=== PATIENT | female | born 1990 | race Caucasian/White ===

== ENCOUNTER 2021-12-06 01:22 | Day surgery (SDC) | payer BC, SELFPAY ==
[2021-11-27 13:19] VITALS: BMI 33.3
--- NOTE | 2021-11-27 13:43 | PC.NURSE ---
Report to the Outpatient Waiting Room, entrance under the green pavilion located off [facility], at time __0600 on date _12/06/21 . OR Time: __729 . - You and your visitor will be asked a series of questions to screen for COVID 19 for your protection. - A mask is required within the hospital. Preoperative COVID Testing Requirements: No COVID Test needed Patients may have clear liquids (water, carbonated beverages, clear teas, apple juice) until 3 hours prior to surgery with a maximum of 20 ounces. - No food from midnight until time of surgery - Infants may have breast milk until 4 hours before surgery, infant formula 6 hours prior to surgery. - Children will be allowed to drink immediately following surgery. If applicable, please bring a bottle or sippy cup to assist with drinking. Juice, water, soda, and popsicles are readily available. For infants on formula, please bring formula the day of surgery. Pacifiers are allowed. Take the following medications with a SIP of water the morning of surgery: ___NONE Medications to discontinue per physician NONE Date to take last dose Please no make-up, nail macedonian, hairspray, perfume, deodorant, or body powder the day of surgery. No jewelry (including any body piercings) or valuables the day of surgery, leave them at home. Please take a shower or bath the night before, or the morning of, surgery with an antibacterial soap. Wear comfortable, loose fitting clothing. Children are encouraged to wear pajamas. - Jewelry must be removed prior to entering the operating room. Rings and piercings that are not removed may be cut off. - The hospital will not accept responsibility for valuables. - Please leave all valuables, including medications, at home the day of surgery. If you are going home after surgery, a licensed [employer] driver must drive you home. - NO public transportation without another adult. - We recommend that an adult stay with you for 24 hours following discharge. - We also recommend that you do not drive, make important decision, drink alcoholic beverages, or take any drugs that were not prescribed by your health care provider for at least 24 hours after your discharge time. For Pediatric surgeries, we recommend two adults accompany the child home (only one inside the building at this time). One visitor will be allowed to accompany the patient into the hospital. Patients visitor will be instructed to remain with patient at all times or leave the building. We will allow the visitor to come back to the postoperative area when patient is ready. Follow any additional instructions given to you from your surgeon. Telephone instructions given to _JANES and asked if any additional questions and then verbalized understanding. Patient advised to call surgeon office or pre surgery nurse liaison [phone] if any additional questions.
--- NOTE | 2021-12-05 10:05 | PM.IMHP ---
H&P: HPI History of Present Illness Date/Time: 12/05/21 10:05 31-year-old 023 female presents with complaints of heavy vaginal bleeding cramping clotting cycles lasting 5-7 days with heavy bleeding for 2-3 days when she does not have Nexplanon in place. She currently has a Nexplanon but has and needs to be removed. Therefore will be proceeding with hysteroscopy D and C and ablation. She has had an ultrasound which showed normal findings. Also desires sterilization via bilateral salpingectomy. We have discussed the permanence failure rate increased risk of ectopic regret she clearly states understanding and consents to the procedure. Chief Complaint: menometrorrhagia Review of Systems Review of Systems: All systems reviewed & are unremarkable except as noted in HPI and below PMFSH Past Medical History Medical History Anxiety Surgical History Surgical History History of x2 Family History Family History Mother Ovarian cancer Social History Social History Smoking status: Never smoker Second hand tobacco smoke exposure: No Alcohol intake: never Substance use: never Substance use type: does not use Gender identity (if verbalized by the patient): Female Spiritual care concerns: No Meds Home Medications and Allergies Home Medications Medication Instructions Recorded Confirmed Type acyclovir 400 mg PO BID 07/08/19 11/27/21 History lisdexamfetamine [Vyvanse] 30 mg PO DAILY 11/27/21 11/27/21 History Allergies Allergy/AdvReac Type Severity Reaction Status Date / Time adhesive tape Allergy Severe Hives Verified 11/27/21 13:35 bee venom protein (honey bee) Allergy Swelling Verified 11/27/21 13:35 benzoyl peroxide Allergy Swelling Verified 11/27/21 13:35 Exam Const: General: cooperative, healthy appearing and comfortable Resp: Effort & Inspection: normal respiratory effort Auscultation: clear to auscultation bilaterally Cardio: Rate: regular rate Rhythm: regular rhythm GI: Auscultation: normal bowel sounds : External Female Exam: normal external appearance Speculum Exam - Cervix: normal appearance of the cervix Bimanual exam- vagina & uterus: normal bimanual exam Bimanual Exam- Adnexa, other: normal adnexae Assessment and Plan Assessment and plan (1) Menometrorrhagia: Code(s): N92.1 - Excessive and frequent menstruation with irregular cycle Status: Acute Assessment and Plan: hysteroscopy D&C endometrial ablation (2) Encounter for female sterilization procedure: Code(s): Z30.2 - Encounter for sterilization Status: Acute Additional Plan bilateral salpingectomy
[2021-12-06] VITALS (8 sets, daily range): BP systolic 141–156; BP diastolic 69–93; PULSE 58–84; RESP 15–20; TEMP 36.1–36.6; O2SAT 99–100
[2021-12-06] MEDS: ACETAMINOPHEN 500 MG TABLET 1000 MG PO (06:19)
[2021-12-06] MEDS: LACTATED RINGERS 1,000 ML 30 ML IV CONT (06:40)
[2021-12-06] MEDS: KETOROLAC 15 MG/ML VIAL (*BKC) IV PUSH (06:42)
--- NOTE | 2021-12-06 06:51 | WPDHPUPDATE1 ---
History and Physical Update Update Date/Time: 12/06/21 06:51 History and Physical has been reviewed, including an updated exam of the patient. There are NO changes in the patient's condition. Risks, benefits, and alternatives have been discussed and questions answered. Patient agrees to proceed with procedure.
--- NOTE | 2021-12-06 06:54 | WPDANESEPPF ---
Anes - Initial Pre Proc Eval Procedure: Operation Date: 12/06/21 07:30 Proposed Procedures p Bilateral Laparoscopic Salpingectomy, Hysteroscopy Dilatation and Curettage with Elvira Endometrial Ablation - Martir Vela MD Date/Time: 12/06/21 06:54 Surgeon: Martir Vela MD Pre Op Diagnosis: menometrorrhagia, desires sterilzation Patient Data Age: 31 Gender: F Height: 1.65 m Weight: 99 kg Last Vital Signs Temp 36.6 C 12/06/21 06:10 Pulse 83 12/06/21 06:10 Resp 20 12/06/21 06:10 BP 141/90 H 12/06/21 06:10 Pulse Ox 99 12/06/21 06:10 Allergies Allergy/AdvReac Type Severity Reaction Status Date / Time adhesive tape Allergy Severe Hives Verified 11/27/21 13:35 bee venom protein (honey bee) Allergy Severe Swelling Verified 12/06/21 06:12 benzoyl peroxide Allergy Severe Facial Verified 12/06/21 06:12 Swelling Home Medications Medication Instructions Recorded Confirmed Type acyclovir 400 mg PO BID 07/08/19 12/06/21 History lisdexamfetamine [Vyvanse] 30 mg PO DAILY 11/27/21 12/06/21 History Patient hx anesthesia problems: none Family hx anesthesia problems: none Results Review: All pre-operative results and documents have been reviewed as part of the pre-operative evaluation. [facility] Past Medical History Medical History Anxiety Surgical History Surgical History History of x2 Family History Family History Mother Ovarian cancer Social History Social History Smoking status: Never smoker Second hand tobacco smoke exposure: No Alcohol intake: never Substance use: never Substance use type: does not use Living arrangements: with family Gender identity (if verbalized by the patient): Female Spiritual care concerns: No Anes - Eval Final PreProcedure Day of Procedure 12/06/21 06:54 Patient weight: obese Heart: regular rate and rhythm Lungs: clear to auscultation Airway: Mallampati scale class II Neurological: alert and oriented Last oral intake: >/= 8 hours ASA classification: II Emergent: no Anesthetic plan: proceed Anesthesia type and monitoring: general ETT and standard monitoring Results Review: All pre-operative results and documents have been reviewed as part of the pre-operative evaluation. Informed Consent: The patient's anesthetic plan and its attendant risks and benefits were discussed with the patient/family/POA. Questions were solicited and answers provided to the satisfaction of the patient/family/POA.
[2021-12-06] MEDS: ceFAZolin 2 GM/D5W 50 ML 2 GM/50 ML BAG IVPB (07:24)
--- NOTE | 2021-12-06 08:12 | P.OPB_ITS ---
Procedure Note - Brief Procedure Note - Brief Date of procedure: 12/06/21 Pre-op diagnosis: menometrorrhagia, desires sterilzation Post-op diagnosis: Same Procedure performed: 1. Bilateral salpingectomy 2. Hysteroscopy with uterine curettings 3. Endometrial ablation Description of procedure: Patient prepped draped usual manner for this procedure. Cervical instruments were placed throughout the case. Her until f orm lower quadrant incisions were made and trocars were placed under direct visualization. Using the Harmonic scalp on the mesial salpinx both tubes removed without difficulty. There was no bleeding during this portion of the procedure. Gas was allowed to escape again and the incisions were approximated using 4-0 Monocryl. Cervix was dilated to allow the hysteroscope to be placed which revealed thickened tissue but no specific abnormalities. Endometrial ablation instrument was placed cavity assessment performed and instrument activated. At the end of the procedure destruction was noted throughout the cavity with good results. At this point the procedure was considered terminated patient sent to the recovery room in stable condition. Anesthesia: GETA Surgeon: Martir Vela MD Estimated blood loss (mL): 5 Drains: No Packing: No Pathology: Yes Complications: No immediate complications Condition: Stable Disposition: PACU Findings: Laparoscopic portion procedure revealed adhesions from the bladder flap to the anterior abdominal wall. Ovaries and uterus themselves without abnormality. On hysteroscopic exam thickened tissue was noted though no other specific abnormalities noted.
[2021-12-06] MEDS: fentaNYL CITRATE INJ (*CRX) 100 MCG/2 ML VIAL 25 MCG IV PUSH (08:37)
[2021-12-06] MEDS: oxyCODONE HCL (*CRX) 5 MG TAB IR PO (09:24)
== END 2021-12-06 10:13 | disposition home or self-care (01) ==
PROVIDERS: PCP Physician Assistant; Visit Provider Obstetrics & Gynecology
PROC: 0UDB8ZZ Extraction of Endometrium, Via Natural or Artificial Opening Endoscopic (ICD-10-PCS; CPT 58558; principal; 2021-12-06 07:30)
DX: N92.1 Excessive and frequent menstruation with irregular cycle (principal); Z30.2 Encounter for sterilization; E66.9 Obesity, unspecified; Z68.36 Body mass index [BMI] 36.0-36.9, adult
CPT/HCPCS: 58563; 58661; 88302; 88305; A9270; J0690; J1100; J1885; J2250; J2270; J2274; J2405; J2704; J3010; J7030; J7120

== ENCOUNTER 2022-08-08 21:47 | Emergency (ER) | payer BC, SELFPAY ==
[2022-08-08 21:50] VITALS: BP 168/128; PULSE 95; RESP 20; TEMP 36.1; O2SAT 98
[2022-08-08 21:55] VITALS: BP 168/98
[2022-08-08 22:09] VITALS: BP 176/110; RESP 18
[2022-08-08] MEDS: OXYMETAZOLINE HCL 0.05% NAS 15 ML BTL (*BKC) 1 SPRAY NASAL (23:23)
--- NOTE | 2022-08-08 23:24 | ED.EPISTAXIS ---
HPI - Epistaxis General Chief complaint: Epistaxis Stated complaint: nosebleed Time Seen by Provider: 08/08/22 22:04 History of Present Illness HPI Narrative: 31-year-old female history of ADHD presents to the emergency room for evaluation of nosebleed to her left nare. Patient is a very late yesterday, and has been cleaning it frequently with normal saline and moving around. Patient also remarks that she has been under significant amount of personal stress, stating that she is in the middle of getting a divorce and just moved into a new residence. States that she noticed that her blood pressure was elevated today, with no history of hypertension. Epistaxis was controlled prior to interview. Denies any injury or trauma. Patient denies headaches, vision changes, frequent urination, chest pain or palpitations. Related Data Home Medications Medication Instructions Recorded Confirmed lisdexamfetamine 30 mg capsule 30 mg PO DAILY 11/27/21 01/01/22 (Vyvanse) Allergies Allergy/AdvReac Type Severity Reaction Status Date / Time adhesive tape Allergy Severe Hives Verified 01/01/22 10:51 bee venom protein (honey bee) Allergy Severe Swelling Verified 01/01/22 10:51 benzoyl peroxide Allergy Severe Facial Verified 01/01/22 10:51 Swelling Review of Systems Review of Systems: CONSTITUTIONAL: Denies fever, chills, or sweats. EYES: Denies visual changes, redness, or discharge. ENT: Reports epistaxis CARDIOVASCULAR: Denies chest pain, palpitations, or edema. RESPIRATORY: Denies cough or dyspnea. GASTROINTESTINAL: Denies abdominal pain, nausea, vomiting, or diarrhea. GENITOURINARY: Denies dysuria or hematuria. SKIN: Denies rash or itching. MUSCULOSKELETAL: Denies back pain, joint pain, or myalgia. NEUROLOGIC: Denies headache, numbness, dizziness, or weakness. PSYCHIATRIC: Denies anxiety or depression. [facility] Past Medical History Medical History Abnormal Pap smear of cervix (04/12/17) 04/12/17 lgsil (+) hpv Acne Anxiety Herpes High cholesterol HPV in female Hypertension Miscarriage (12/20/16) Nexplanon insertion 08/12/13 Nexplanon insertion 08/12/14 Nexplanon removal/reinsertion 05/29/17 Nexplanon insertion 07/23/19 Nexplanon insertion 04/28/20 Nexplanon insertion Nexplanon removal 08/12/14 Nexplanon removal/reinsertion 03/22/16 Nexplanon removal 09/16/17 Nexplanon removal 01/13/20 Nexplanon removal Nexplanon removal (~12/25/21) nexplanon removal Surgical History Surgical History History of 08/30/10 primary c/s-- intolerance 10/06/14 rpt c/s 07/03/19 rpt c/s History of colposcopy with cervical biopsy 05/20/17 benign History of dilation and curettage 12/20/16 suction d&c--incomplete miscarriage--POC History of hysteroscopy (12/06/21) hscope D&C Endometrial Ablation / bilateral salpingectomy Family History Family History Mother Ovarian cancer Malignant tumor of cervix Malignant tumor of vagina Other Malignant neoplasm of lung maternal uncle Malignant neoplasm of brain maternal uncle Alcoholism paternal uncle Grandparent Carcinoma of colon maternal grandmother Breast cancer maternal grandmother Father Alcoholism Social History Social History Smoking status: Never smoker Second hand tobacco smoke exposure: No Alcohol intake: never Substance use: never Substance use type: does not use Additional living arrangements comments: 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
[2022-08-08] MEDS: hydrOXYzine pamoate 25 MG CAPSULE PO (23:43)
[2022-08-08 23:48] VITALS: BP 136/80; PULSE 80; RESP 16; TEMP 36.8; O2SAT 98
== END 2022-08-09 00:03 | disposition home or self-care (01) ==
PROVIDERS: Emergency Provider Nurse Practitioner Family; PCP Physician Assistant
DX: R04.0 Epistaxis (principal); F41.9 Anxiety disorder, unspecified; R03.0 Elevated blood-pressure reading, without diagnosis of hypertension; F90.9 Attention-deficit hyperactivity disorder, unspecified type; Z90.710 Acquired absence of both cervix and uterus; Z90.79 Acquired absence of other genital organ(s)
CPT/HCPCS: 99283; A9270